=== PATIENT | female | born 1985 | race Caucasian/White ===

== ENCOUNTER → 2016-12-05 | Outpatient (CLI) | payer MEDICAID, OTHER | END | disposition home or self-care (01) | LOC: LABWHC1 10:17 | PROVIDERS: ATTEND Obstetrics & Gynecology | DX: E07.9 Disorder of thyroid, unspecified (principal) | CPT/HCPCS: 36415; 84436; 84443; 84481; 86376 ==

== ENCOUNTER → 2017-01-11 | Outpatient (CLI) | payer MEDICAID, OTHER | LOC: LABWHC1 08:22 | PROVIDERS: ATTEND Obstetrics & Gynecology | DX: E03.9 Hypothyroidism, unspecified (principal) | CPT/HCPCS: 36415; 84439; 84443 ==

== ENCOUNTER → 2018-07-24 | Outpatient (CLI) | payer OTHER ==
--- NOTE | 2018-07-24 13:14 | MR ---
EXAMINATION TYPE: MR brain w con DATE OF EXAM: 07/24/2018 COMPARISON: 08/25/2015 HISTORY: Multple sclerosis TECHNIQUE: Multiplanar, multisequence images of the brain and brainstem is performed without and with IV contras t, utilizing 6.5 mL intravenous Gadavist . FINDINGS: Diffusion weighted images demonstrate no evidence of a recent infarct or other diffusion ab normality. The brain volume is age appropriate. Midline structures demonstrate normal morphology. The craniocervical junction appears within normal limits. The dural venous sinuses appear patent. The visualized sinuses are clear and the globes are intact. Changes of chronic sinusitis noted. There is an area of abnormal signal involving the anterior margin of the davide which was not seen on t he previous exam. No enhancement. WHITE MATTER: Approximately 80-100 lesions within the white matter scattered bilaterally. The largest measures approximately 1.4 cm and is similar in size to the prior exam. There are multiple lesions perpendicular to the ventricular system. There is a single enhancing lesion in the posterior left parietal white matter measuring 8 x 4 mm thi s appears to be a new lesion relative to the prior exam. There is an additional enhancing lesion within the left temporal lobe measuring 5 x 5 x 7 mm which al so appears to be a new lesion relative to the prior exam. IMPRESSION: 1. Diffuse white matter changes in a pattern compatible with the patient's reported history of demyel inating process. There are at least 2 new lesions both of which enhance involving the left temporal a nd parietal lobes as discussed above. This suggest that active demyelination or plaque. 2. There also appears to be new area of abnormal signal on FLAIR imaging involving the anterior infer ior margin of the davide. Measures approximately 6 mm. No enhancement.
== END | disposition home or self-care (01) ==
LOC: RADMRIMAIN 11:42
PROVIDERS: ATTEND Psychiatry & Neurology Neurology
DX: G93.89 Other specified disorders of brain (principal); R90.89 Other abnormal findings on diagnostic imaging of central nervous system; G35 Multiple sclerosis
CPT/HCPCS: 70552; A9581

== ENCOUNTER → 2018-08-20 | Outpatient (CLI) | payer OTHER ==
--- NOTE | 2018-08-20 22:44 | MR ---
MRI CERVICAL SPINE: CLINICAL HISTORY: Multiple sclerosis diagnosed 8 years ago. TECHNIQUE: Multiplanar, multisequence imaging of the cervical spine is performed without and with IV contrast, 6.5 cc of gadolinium was given intravenously. Demyelinating disease protocol with additiona l PD sagittal sequences cervical spine acquired. COMPARISON: MRI cervical spine November 29, 2011.. FINDINGS: Coronal images redemonstrate slight but stable dextroconvex scoliotic curvature centered ne ar cervicothoracic junction. Sagittal images of the cervical spine show the craniocervical junction t o remaining within normal limits. The cervical and upper thoracic spinal cord is normal in course an d caliber. Subtle new focus T2 hyperintensities are present right superior C3 level sagittal image 8. Cannot exclude additional smaller lesions but there is more artifact noted on current study for refe rence sagittal image 6 C5 and C6 level. Vertebral alignment is stable in anatomic. The vertebral bod y and intravertebral disk heights remain normal. The bone marrow signal intensity is within normal l imits. No suspicious enhancement is present. Axial images show there is no significant focal disk disease, spinal canal stenosis, neural foraminal narrowing, or spinal cord compromise at any cervical level. Cannot exclude peripheral T2 hyperintens e lesions near C5-C6 disc space axial image 20. Right-sided superior C3 lesion is confirmed axial robin ge 45. Suspect left-sided peripheral lesion T5 level axial image 23. IMPRESSION: New areas of demyelinating disease involvement are felt present. No enhancing lesions are seen.
== END | disposition home or self-care (01) ==
LOC: RADMRIMAIN 21:02
PROVIDERS: ATTEND Psychiatry & Neurology Neurology
DX: G35 Multiple sclerosis (principal)
CPT/HCPCS: 72156; A9585

== ENCOUNTER → 2018-08-28 | Outpatient (CLI) | payer OTHER ==
--- NOTE | 2018-08-28 09:47 | MR ---
EXAMINATION TYPE: MR thoracic spine wo/w con DATE OF EXAM: 08/28/2018 COMPARISON: Correlation MRI cervical spine 08/20/2018 HISTORY: 33-year-old female MS Technique: Multiplanar, multisequence images of the thoracic spine were obtained before and after adm inistration of 6.5 mL intravenous Gadavist gadolinium contrast. Sagittal PD sequence also utilized p MS protocol. FINDINGS: Vertebral body heights are preserved and alignment is maintained. No significant degenerative change, focal disc herniation, or significant spinal canal or neuroforami nal stenosis. No suspicious bone marrow placement. Normal course and caliber of the thoracic spinal cord. There is some subtle vague, patchy increased T2 cord signal centrally in the cord located opposite th e T9, T9-T10, T10, and T11-T12 levels. Refer to sagittal T2-weighted images 5 and 6. No abnormal enhancement within the spinal canal. No prevertebral paravertebral soft tissue abnormality seen. IMPRESSION: 1. Vague, patchy areas of increased T2 cord signal from T9 down through T11-T12 levels. Findings in k eeping with patient's MS. No enhancing plaques seen. 2. No spinal canal or neuroforaminal stenosis.
== END | disposition home or self-care (01) ==
LOC: RADMRIMAIN 08:03
PROVIDERS: ATTEND Psychiatry & Neurology Neurology
DX: G35 Multiple sclerosis (principal); G95.89 Other specified diseases of spinal cord
CPT/HCPCS: 72157; A9585

== ENCOUNTER → 2019-08-20 | Outpatient (CLI) | payer OTHER ==
--- NOTE | 2019-08-20 22:05 | MR ---
EXAMINATION TYPE: MR brain wo/w con DATE OF EXAM: 08/20/2019 COMPARISON: MRI brain August 25, 2015 HISTORY: MS follow up TECHNIQUE: Multiplanar, multisequence images of the brain and brainstem is performed without and with utilizing 6.5 mL intravenous Gadavist gadolinium contrast. Demyelinating disease protocol with additional Sagi ttal Flair sequence performed. FINDINGS: T2 Lesions Present : Yes Approximate Number of Lesions: Difficult to accurately count due to confluent appearance. Estimated a t least 50 lesions. Locations Identified : Scattered most prominent periventricular and deep with infratentorial involvem ent noted. Size of Reference Lesion(s): 1. 0.7 x 0.6 x 0.7 cm high left frontal lesion axial image 28 and sagittal image 23 unchanged from pr ior 2015 study. Enhancing Lesion(s) Present: No T1 Hypointense Lesion(s) Present: Yes Change from Prior: Stable Diffusion weighted images demonstrate no evidence of a recent infarct or other diffusion abnormality. There is no worrisome extra-axial fluid collection. The ventricular system and cisternal spaces ar e normal in size and appearance. The brain volume is age appropriate. Midline structures demonstrate normal morphology. The craniocervical junction appears within normal limits. Post contrast images demonstrate no abnormal enhancement. The dural venous sinuses appear pa tent. Mild mucosal thickening anterior ethmoid sinuses bilaterally on current study otherwise paranas al sinuses are clear. Globes are distorted by artifact. IMPRESSION: Redemonstration of severe white matter changes presumed on the basis of patient's known m ultiple sclerosis. No definitive new or enhancing lesions clearly seen.
== END ==
LOC: RADMRIMAIN 14:50
PROVIDERS: ATTEND Psychiatry & Neurology Neurology
DX: R90.89 Other abnormal findings on diagnostic imaging of central nervous system (principal); G35 Multiple sclerosis
CPT/HCPCS: 70553; A9585

== ENCOUNTER → 2020-03-03 | Outpatient (CLI) | payer OTHER ==
[2020-03-04 11:09] LABS: T4/T8 Ratio (CD4:CD8) 1.7 (1.0-3.7)
== END | disposition home or self-care (01) ==
LOC: LABWHC1 10:41
PROVIDERS: ATTEND Psychiatry & Neurology Neurology
DX: G35 Multiple sclerosis (principal); M62.838 Other muscle spasm
CPT/HCPCS: 36415; 86360

== ENCOUNTER → 2020-05-07 | Outpatient (CLI) | payer OTHER ==
[2020-05-08 13:06] LABS: T4/T8 Ratio (CD4:CD8) 2.5 (1.0-3.7)
== END | disposition home or self-care (01) ==
LOC: LABWHC1 10:29
PROVIDERS: ATTEND Psychiatry & Neurology Neurology
DX: G35 Multiple sclerosis (principal); M62.838 Other muscle spasm
CPT/HCPCS: 36415; 86360

== ENCOUNTER → 2020-07-21 | Outpatient (CLI) | payer OTHER ==
[2020-07-22 12:34] LABS: T4/T8 Ratio (CD4:CD8) 2.4 (1.0-3.7)
== END | disposition home or self-care (01) ==
LOC: LABWHC1 15:42
PROVIDERS: ATTEND Dermatology
DX: G35 Multiple sclerosis (principal); M62.838 Other muscle spasm; L70.0 Acne vulgaris
CPT/HCPCS: 36415; 84702; 86360

== ENCOUNTER → 2020-07-24 | Outpatient (CLI) | payer OTHER ==
--- NOTE | 2020-07-24 11:04 | MR ---
EXAMINATION TYPE: MR brain/cspine wo/w DATE OF EXAM: 07/24/2020 COMPARISON: Prior MR brain 07/24/2018, MR cervical spine 08/20/2018 HISTORY: MS TECHNIQUE: Multiplanar, multisequence images of the brain and brainstem, cervical spine is performed without and with IV contrast, utilizing 6.5 mL intravenous Gadavist . FINDINGS: Brain MRI: Diffusion weighted images demonstrate no evidence of a recent infarct or other diffusion a bnormality. There is no extra-axial fluid collection or significant interval change in white matter signal abnormality including pericallosal, 7 juxtacortical, periventricular white matter hyperintensi ty and inversion recovery T2-weighted sequences. Dominant lesion seen on prior exam in the left saul etal periventricular white matter, axial image 19 has improved, is less conspicuous than on prior, th e lesion seen in the left frontal deep white matter on axial image 20 has become more conspicuous and now measures approximately 11 to 12 mm. The ventricular system and cisternal spaces are normal in si ze and appearance. The brain volume is age appropriate. Midline structures demonstrate normal morphology. The craniocervical junction appears within normal limits. Post contrast images demonstrate no abnormal enhancement, previous foci of enhancement no lo nger enhance. The dural venous sinuses appear patent. The visualized sinuses are clear and the globes are intact. Cervical spine MRI: Cervical vertebral bodies show preserved height, alignment, and bone marrow signa l. Disc spaces are maintained, there is no evident spinal stenosis or disc herniation. No foraminal e ncroachment. Cervical cord signal is normal. No abnormal enhancement. IMPRESSION: Resolution of enhancing plaques in the brain, mild interval changes as described. No abno rmal signal identified within the cervical.
== END | disposition home or self-care (01) ==
LOC: RADMRIMAIN 08:10
PROVIDERS: ATTEND Psychiatry & Neurology Neurology
DX: G93.89 Other specified disorders of brain (principal); R90.89 Other abnormal findings on diagnostic imaging of central nervous system
CPT/HCPCS: 70553; 72156; A9585

== ENCOUNTER → 2020-09-08 | Outpatient (CLI) | payer OTHER ==
[2020-09-09 12:01] LABS: T4/T8 Ratio (CD4:CD8) 2.7 (1.0-3.7)
== END | disposition home or self-care (01) ==
LOC: LABWHC1 08:37
PROVIDERS: ATTEND Psychiatry & Neurology Neurology
DX: G35 Multiple sclerosis (principal); M62.838 Other muscle spasm
CPT/HCPCS: 36415; 86360

== ENCOUNTER → 2020-10-26 | Outpatient (CLI) | payer OTHER ==
[2020-10-27 12:35] LABS: T4/T8 Ratio (CD4:CD8) 2.7 (1.0-3.7)
== END | disposition home or self-care (01) ==
LOC: LABWHC1 13:59
PROVIDERS: ATTEND Psychiatry & Neurology Neurology
DX: G35 Multiple sclerosis (principal); M62.838 Other muscle spasm
CPT/HCPCS: 36415; 86360

== ENCOUNTER → 2021-03-10 | Outpatient (CLI) | payer OTHER ==
[2021-03-11 12:42] LABS: T4/T8 Ratio (CD4:CD8) 2.5 (1.0-3.7)
== END | disposition home or self-care (01) ==
LOC: LABWHC1 13:56
PROVIDERS: ATTEND Psychiatry & Neurology Neurology
DX: G35 Multiple sclerosis (principal)
CPT/HCPCS: 36415; 86360

== ENCOUNTER → 2021-09-22 | Outpatient (CLI) | payer BC ==
--- NOTE | 2021-09-22 08:29 | MR ---
EXAMINATION TYPE: MR brain wo/w con DATE OF EXAM: 09/22/2021 COMPARISON: MRI brain August 20, 2019 HISTORY: MS TECHNIQUE: Multiplanar, multisequence images of the brain and brainstem is performed without and with IV contras t, utilizing 6 mL intravenous Gadavist gadolinium contrast is administered intravenously. Demyelinat ing disease protocol with additional Sagittal Flair sequence performed. FINDINGS: T2 Lesions Present : Yes Approximate Number of Lesions: Difficult to accurately count due to multifocal and confluent appearan ce Locations Identified : Most prominent in the deep and periventricular levels bilaterally Size of Reference Lesion(s): 1. 0.8 x 0.4 x 0.7 cm on axial image 27 and sagittal image 11 high left frontal cortical lesion stabl e Enhancing Lesion(s) Present: There is enhancing 4 mm left frontal periventricular lesion axial image 49 seen best postcontrast sagittal image 59. There is a second enhancing 3 mm the right frontal parie ant junction lesion at level of lowry radiata sagittal image 97. T1 Hypointense Lesion(s) Present: Yes Change from Prior: Stable Diffusion weighted images demonstrate no evidence of a recent infarct or other diffusion abnormality. There is no worrisome extra-axial fluid collection. The ventricular system and cisternal spaces ar e normal in size and appearance. The brain volume is age appropriate. Midline structures demonstrate normal morphology. The craniocervical junction appears within normal limits. Post contrast images demonstrate no abnormal enhancement. The dural venous sinuses appear pa tent. The visualized sinuses are clear and the globes are intact. IMPRESSION: Persistent severe white matter changes consistent with patient's history of known multipl e sclerosis. There are 2 tiny enhancing lesions consistent with active disease on current exam noted.
== END | disposition home or self-care (01) ==
LOC: RADMRIMAIN 06:30
PROVIDERS: ATTEND Psychiatry & Neurology Neurology
DX: G35 Multiple sclerosis (principal)
CPT/HCPCS: 70553; A9585

== ENCOUNTER → 2021-10-26 | Outpatient (CLI) | payer OTHER ==
[2021-10-26 15:37] LABS: ALT 21 U/L (8-44); AST 28 U/L (13-35)
[2021-10-26 16:35] LABS: HCG,Quantitative Serum <0.1 (0.0-6.0)
== END | disposition home or self-care (01) ==
LOC: LABWHC1 09:01
PROVIDERS: ATTEND Dermatology
DX: L70.0 Acne vulgaris (principal)
CPT/HCPCS: 36415; 82465; 84450; 84460; 84478; 84702

== ENCOUNTER → 2021-12-03 | Outpatient (CLI) | payer OTHER ==
[2021-12-03 22:53] LABS: ALT 17 U/L (8-44); AST 24 U/L (13-35); Albumin 4.6 g/dL (3.8-4.9); Albumin/Globulin Ratio 1.81 (1.60-3.17); Alkaline Phosphatase 65 U/L (41-126); Bilirubin, Conjugated <0.20 mg/dL (0.20-0.40); Globulin 2.5 g/dL (1.6-3.3); Total Protein 7.1 g/dL (6.2-8.2)
[2021-12-03 22:59] LABS: Hepatitis B Surface Antibody Reactive (Nonreactive)
[2021-12-03 23:07] LABS: Hepatitis B Surface Antigen Nonreactive (Nonreactive)
[2021-12-03 23:08] LABS: Hepatitis B Core IgM Nonreactive (Nonreactive)
== END | disposition home or self-care (01) ==
LOC: LABWHC1 14:34
PROVIDERS: ATTEND Physician Assistant
DX: G35 Multiple sclerosis (principal)
CPT/HCPCS: 36415; 80076; 82784; 86704; 86705; 86706; 87340

== ENCOUNTER → 2021-12-15 | Outpatient (CLI) | payer BC ==
--- NOTE | 2021-12-16 08:46 | MR ---
EXAMINATION TYPE: MR cspine/tspine wo/w con DATE OF EXAM: 12/15/2021 COMPARISON: Cervical spine 07/24/2020 and thoracic spine 08/28/2018 HISTORY: 36-year-old female G35 MS, MS history for 10 years, follow up study. Technique: Multiplanar, multisequence images of the cervical followed by the thoracic spine were obta ined before and after administration of 6.5 mL intravenous Gadavist gadolinium contrast. Sagittal PD sequence per MS protocol. FINDINGS: CERVICAL SPINE: No previous cervical junction and midbody, predental space widening, or prevertebral soft tissue swel ling. A few levels of minimal posterior disc bulging and minimal early disc desiccation throughout the cerv ical spine with preserved disc spaces. No significant canal or foraminal stenosis is seen. Normal course and caliber of the cervical spinal cord. No abnormal enhancement within the spinal aman l. Tight, high contrast windowing suggests very subtle focus of increased signal right hemicord opposite C1-C2, sagittal image 9 and axial image 46. Also some patchy changes suggested in the ventral cord opposite C4-C5, sagittal image 8. Also some minimal increased signal change left hemicord opposite C5-C6, axial image 24. These are very subtle changes in retrospect, we suspect that these may have been present on the akil rison exam. No bone marrow replacement. Preserved alignment of the cervical spine. THORACIC SPINE: Vertebral body heights are preserved and alignment is maintained. Disc interspaces also preserved. No suspicious bone marrow placement. Normal course and caliber of the thoracic spinal cord. No abnormal enhancement within the spinal canal. No focal disc herniation or significant spinal canal or foramin al stenosis. - Focal central increased cord signal opposite T3-T4, sagittal image 8 and axial image 11 not clearly seen previously. - Some vague patchy increased signal within the central and right hemicord opposite T9-T10, axial robin ge 10 and 11. Not well seen on sagittal sequence. - Some vague increased signal seen in the right hemicord opposite T10, similar to prior, PD sagittal image 9. No prevertebral paravertebral soft tissue abnormality seen. COMBINED IMPRESSION: CERVICAL SPINE: 1. Very subtle patchy signal change within the right hemicord at C1-C2, ventral cord at C4-C5, and le ft hemicord at C5-C6 as above. Again, these are very subtle changes only apparent on high contrast wi ndowing. In retrospect, we suspect that these were present on the prior exam as well. Subtle MS plaqu es are suggested. 2. No abnormal enhancement within the spinal canal. No spinal canal or neuroforaminal stenosis. THORACIC SPINE: 3. A couple vague patchy areas of increased signal T9 and T10 as seen previously. A focus in the cent ral cord opposite T3-T4 was not as well-seen previously and may represent a new or progressive demyel inating plaque (sagittal image 8, axial image 11). 4. No enhancing plaques. No canal or foraminal stenosis.
== END | disposition home or self-care (01) ==
LOC: RADMRIMAIN 06:05
PROVIDERS: ATTEND Psychiatry & Neurology Neurology
DX: G35 Multiple sclerosis (principal)
CPT/HCPCS: 72156; 72157; A9585

== ENCOUNTER → 2022-03-04 | Outpatient (CLI) | payer BC ==
[2022-03-04 16:38] LABS: ALT 11 U/L (8-44); AST 24 U/L (13-35); HCG,Quantitative Serum <3.0 (0.0-6.0)
== END | disposition home or self-care (01) ==
LOC: LABWHC1 09:15
PROVIDERS: ATTEND Dermatology
DX: L70.0 Acne vulgaris (principal)
CPT/HCPCS: 36415; 82465; 84450; 84460; 84478; 84702

== ENCOUNTER → 2022-06-08 | Outpatient (CLI) | payer BC | END | disposition home or self-care (01) | LOC: LABWHC1 10:45 | PROVIDERS: ATTEND Obstetrics & Gynecology | DX: E03.9 Hypothyroidism, unspecified (principal) | CPT/HCPCS: 36415; 84443; 84481 ==

== ENCOUNTER → 2023-02-07 | Outpatient (CLI) | payer BC ==
[2023-02-07 23:12] LABS: Immunoglobulin M 74.3 mg/dL (40.0-280.0)
== END | disposition home or self-care (01) ==
LOC: LABWHC1 08:20
PROVIDERS: ATTEND Psychiatry & Neurology Neurology
DX: G35 Multiple sclerosis (principal)
CPT/HCPCS: 36415; 82784

== ENCOUNTER → 2023-11-29 | Outpatient (CLI) | payer BC ==
--- NOTE | 2023-11-30 08:23 | MM ---
Reason for Exam: Screening (asymptomatic). Baseline mammogram. Patient History: Menarche at age 10. First Full-Term at age 24. Premenopausal. Patient has history of breast feeding. Paternal aunt had breast cancer under age 50. Paternal aunt had breast cancer under age 50. Maternal aunt had breast cancer at or over age 50. Risk Values: Elaine 5 year model risk: 0.6%. NCI Lifetime model risk: 11.1%. Prior Study Comparison: Patient's first Mammogram. Tissue Density: The breast tissue is heterogeneously dense. This may lower the sensitivity of mammography. Findings: Analyzed By CAD. There is no suspicious group of microcalcifications or new suspicious mass in either breast. Overall Assessment: Negative, BI-RAD 1 Management: Screening Mammogram of both breasts in 1 year. . Patient should continue monthly self-breast exams. A clinical breast exam by your physician is recommended on an annual basis. This exam should not preclude additional follow-up of suspicious palpable abnormalities. Note on Elaine scores and lifetime risk: 1. A Elaine score greater than 3% is considered moderate risk. If this is the case, consider specialist referral to assess eligibility for a risk reducing agent. 2. If overall lifetime risk for the development of breast cancer is 20% or higher, the patient may qualify for future screening with alternating mammogram and breast MRI. Electronically signed and approved by: Sha De Anda M.D. Radiologis
== END | disposition home or self-care (01) ==
LOC: RADMAMWWP 07:34
PROVIDERS: ATTEND Obstetrics & Gynecology
DX: Z12.31 Encounter for screening mammogram for malignant neoplasm of breast (principal); Z80.3 Family history of malignant neoplasm of breast
CPT/HCPCS: 77067

== ENCOUNTER → 2024-08-15 | Outpatient (CLI) | payer BC ==
--- NOTE | 2024-08-15 13:49 | MR ---
MRI BRAIN WITH CONTRAST CLINICAL HISTORY: MS follow-up TECHNIQUE: Multiplanar, multisequence imaging of the brain and brainstem is performed without and wit h IV contrast, 6.5 cc of Gadolinium is administered intravenously. Demyelinating disease protocol wi th additional Sagittal Flair sequence performed. Comparison: 12/29/2022 FINDINGS: T2 Lesions Present : Yes Approximate Number of Lesions: Difficult to elucidate given confluent nature of diffuse abnormal T2 a nd inversion recovery signal. Locations Identified : Most prominent in the deep and periventricular levels bilaterally Size of Largest Lesion(s): 1. Stable confluent lesion posterior right lowry radiata measuring 1.6 x 1.4 cm Enhancing Lesion(s) Present: No Change from Prior: Stable Diffusion weighted images demonstrate no evidence of a recent infarct or other diffusion abnormality. There is no worrisome extra-axial fluid collection. The ventricular system and cisternal spaces ar e normal in size and appearance. The brain volume is age appropriate. Midline structures demonstrate normal morphology. The craniocervical junction appears within normal limits. Post contrast images demonstrate no abnormal enhancement. The dural venous sinuses appear pa tent. The visualized sinuses are clear and the globes are intact. IMPRESSION: 1. Stable features of severe multiple sclerosis. No new lesions identified. [facility], , 08/15/2024 1:46 PM
== END | disposition home or self-care (01) ==
LOC: RADMRIMAIN 12:33
PROVIDERS: ATTEND Psychiatry & Neurology Neurology
DX: G35 Multiple sclerosis (principal)
CPT/HCPCS: 70553

== ENCOUNTER → 2025-01-08 | Outpatient (CLI) | payer BC ==
--- NOTE | 2025-01-08 14:28 | MM ---
Reason for Exam: Screening (asymptomatic). Last mammogram was performed 1 year(s) and 1 month(s) ago. Patient History: Menarche at age 10. First Full-Term at age 24. Premenopausal. Patient has history of breast feeding. Paternal aunt had breast cancer, age 40. Paternal aunt had breast cancer, age 55. Maternal aunt had breast cancer, age 60. Risk Values: Elaine 5 year model risk: 0.7%. NCI Lifetime model risk: 11.0%. Prior Study Comparison: 11/29/2023 Bilateral MG screening mammo w CAD, [facility]. Tissue Density: The breasts are heterogeneously dense, which may obscure small masses. Findings: Analyzed By CAD. There is no suspicious group of microcalcifications or new suspicious mass in either breast. Overall Assessment: Negative, BI-RAD 1 Management: Screening Mammogram of both breasts in 1 year. Some advise annual bilateral breast ultrasound surveillance in patients with background dense tissue. Patient should continue monthly self-breast exams. A clinical breast exam by your physician is recommended on an annual basis. This exam should not preclude additional follow-up of suspicious palpable abnormalities. Note on Elaine scores and lifetime risk: 1. A Elaine score greater than 3% is considered moderate risk. If this is the case, consider specialist referral to assess eligibility for a risk reducing agent. 2. If overall lifetime risk for the development of breast cancer is 20% or higher, the patient may qualify for future screening with alternating mammogram and breast MRI. [facility], , 01/08/2025 2:25 PM. Electronically signed and approved by: Hemanth Atkinson M.D.
== END | disposition home or self-care (01) ==
LOC: RADMAMWWP 13:48
PROVIDERS: ATTEND Obstetrics & Gynecology
DX: Z12.31 Encounter for screening mammogram for malignant neoplasm of breast (principal); R92.333 Mammographic heterogeneous density, bilateral breasts; Z80.3 Family history of malignant neoplasm of breast
CPT/HCPCS: 77067